=== PATIENT | male | born 1985 | race Hispanic/Latino ===

== ENCOUNTER 2021-05-21 23:23 | Emergency (ER) | payer SELFPAY ==
[~2021-05-21] VITALS: Ht 175.3 cm; Wt 152.0 kg
[2021-05-21] MEDS ORDERED: TRAMADOL HCL 50 MG TAB PO STA (23:44)
== END 2021-05-22 00:16 | disposition home or self-care (01) ==
LOC: ER 23:29
DX: N47.2 Paraphimosis (principal)
CPT/HCPCS: 99282